=== PATIENT | female | born 1965 ===

== ENCOUNTER 2016-10-01 14:03 | Observation (INO) | payer BC ==
[2016-10-01 14:21] VITALS: BP 128/78; PULSE 65; RESP 16; TEMP 98.4; O2SAT 100
--- NOTE | 2016-10-01 15:29 | ED PDOC ---
Lower Extremity Pain/Injury Time Seen by Provider: 10/01/16 14:57 Chief Complaint (Nursing): Abdominal Pain Chief Complaint (Provider): Right Groin Pain History Per: Patient History/Exam Limitations: no limitations Onset/Duration Of Symptoms: Days (x1 month), Intermittent Episodes Current Symptoms Are (Timing): Still Present Severity: Moderate Additional Complaint(s): Vanessa Monte is a 51 year old female, with a past medical history inclusive of varicose veins, who presents to the ED on 10/01/16 for the evaluation of moderate, intermittent right groin pain that she has experienced x1 month. Pain , further described as radiating down into her left ankle, is reportedly worse both with movement and with prolonged standing. Some associated right calf pain also reported as well as a sensation of "heaviness" within the affected leg. Denies chest pain, shortness of breath, back pain, abdominal discomfort, skin discoloration or extremity swelling. Further denies prior history of DVT/ pulmonary embolism, recent surgery, recent travel or use or hormone therapies. PERC (-). PMD: Nathan Ordaz Past Medical History Reviewed: Historical Data, Nursing Documentation, Vital Signs Vital Signs: Last Vital Signs Temp 98.4 F 10/01/16 14:18 Pulse 65 10/01/16 14:18 Resp 16 10/01/16 14:18 BP 128/78 10/01/16 14:18 Pulse Ox 100 10/01/16 14:18 - Medical History PMH: No Chronic Diseases Denies: Deep Vein Thrombosis, Pulmonary Embolism Other PMH: varicose veins - Surgical History Surgical History: Hernia Repair Other surgeries: hysterectomy, varicose vein surgery - Family History Family History: States: Unknown Family Hx - Social History Current smoker - smoking cessation education provided: No Alcohol: None Drugs: Denies - Allergies Allergies/Adverse Reactions: Allergies Allergy/AdvReac Type Severity Reaction Status Date / Time No Known Allergies Allergy Verified 10/01/16 14:18 Review of Systems Cardiovascular: Negative for: Chest Pain, Edema Respiratory: Negative for: Shortness of Breath, SOB with Exertion Gastrointestinal: Negative for: Abdominal Pain Musculoskeletal: Positive for: Leg Pain (right calf pain w/sensation of "heaviness" within affected leg; no skin discoloration), Other (right groin pain w/radiation down towards ankle). Negative for: Back Pain Physical Exam - Reviewed Nursing Documentation Reviewed: Yes Vital Signs Reviewed: Yes - Physical Exam Appears: Positive for: Non-toxic, No Acute Distress Head Exam: Positive for: ATRAUMATIC, NORMOCEPHALIC Skin: Positive for: Normal Color, Warm, Dry Neck: Positive for: Normal, Painless ROM, Supple Cardiovascular/Chest: Positive for: Regular Rate, Rhythm. Negative for: Murmur Respiratory: Positive for: Normal Breath Sounds. Negative for: Respiratory Distress Pulses-Dorsalis Pedis (R): 2+ Gastrointestinal/Abdominal: Positive for: Normal Exam, Soft. Negative for: Tenderness Back: Positive for: Normal Inspection Extremity: Positive for: Normal ROM, Calf Tenderness (right), Capillary Refill ( <2 seconds), Other (right groin tenderness w/faint right femoral pulse). Negative for: Deformity, Swelling Neurologic/Psych: Positive for: Alert, Oriented - Laboratory Results Result Diagrams: 10/01/16 15:20 10/01/16 15:20 Interpretation Of Abn Labs: K+ low-given K-dur - ECG O2 Sat by Pulse Oximetry: 100 (RA) Pulse Ox Interpretation: Normal Medical Decision Making Medical Decision Makin:57 Initial Impression: right groin/calf pain; will r/o DVT Initial Plan: * Duplex LE Vein, Right * Labs * PTT * PT * Reevaluation 17:04. Pt with prolonged ED wait-due to signidicant wait in [place]. 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 pt with negative DVT pt most liekly with GAUTAM flores advised to f.u with pmd for PTx if needed and motrin Scribe Attestation: Documented by Lupe Cherry, acting as a scribe for Heather Walker PA-C. Provider Scribe Attestation: All medical record entries made by the Scribe were at my direction and personally dictated by me. I have reviewed the chart and agree that the record accurately reflects my personal performance of the history, physical exam, medical decision making, and the department course for this patient. I have also personally directed, reviewed, and agree with the discharge instructions and disposition. ED OBSERVATION Discharge: Yes Date of observation admission: 10/01/16 Time of observation admission: 17:08 - Observation admission statement Patient is being placed in observation because:: results of exam - Goals of Observation Goals of observation are:: results of US Disposition - Clinical Impression Clinical Impression: Cramps of lower extremity - Patient ED Disposition Is Patient to be Admitted: No Counseled Patient/Family Regarding: Studies Performed, Diagnosis, Need For Followup, Rx Given - Disposition Disposition: Routine/Home Disposition Time: 19:07 Condition: GOOD
[2016-10-01 15:39] LABS: BASO # 0.1 K/uL (0.0-0.2); BASO % 0.9 % (0.0-2.0); EOS # 0.1 K/uL (0.0-0.7); EOS % 1.5 % (0.0-4.0); HEMATOCRIT 37.6 % (34.0-47.0); LYMPH # 1.8 K/uL (1.0-4.3); MEAN CELL VOLUME 94.3 fl (81.0-99.0); MEAN CORPUSCULAR HEMOGLOBIN 31.1 pg (27.0-31.0); MEAN PLATELET VOLUME 9.3 fl (7.2-11.7); MONO # 0.6 K/uL (0.0-0.8); MONO % 8.8 % (0.0-10.0); NEUT # 4.6 K/uL (1.8-7.0); NEUT % 63.8 % (50.0-75.0); RED CELL DISTRIBUTION WIDTH 14.2 % (11.5-14.5); WHITE BLOOD COUNT 7.3 K/uL (4.8-10.8)
[2016-10-01 15:49] LABS: ALB/GLOB RATIO 1.2 (1.0-2.1); ALKALINE PHOSPHATASE 82 U/L (38-126); ALT/SGPT 71 U/L (9-52); AST/SGOT 57 U/L (14-36); BILIRUBIN,TOTAL 0.3 mg/dl (0.2-1.3); BLOOD UREA NITROGEN 14 mg/dl (7-17); CALCIUM 9.5 mg/dL (8.4-10.2); CARBON DIOXIDE 29 mmol/L (22-30); CHLORIDE 105 mmol/L (98-107); GFR AFRICAN-AMERICAN > 60; GLUCOSE,RANDOM 100 mg/dL (65-105); POTASSIUM 3.4 MMOL/L (3.6-5.0); SODIUM 146 mmol/l (132-148); TOTAL PROTEIN 7.4 G/DL (6.3-8.2)
[2016-10-01 15:55] LABS: PARTIAL THROMBOPLASTIN TIME 23.4 SECONDS (23.3-32.5)
[2016-10-01] MEDS ORDERED: Potassium Chloride 10 mEq ER Tab PO STA (16:06)
--- NOTE | 2016-10-01 19:18 | US ---
EXAM: US Duplex Right Lower Extremity Veins CLINICAL HISTORY: 51 years old, female; Pain; Leg, lower; Right; Additional info: Groin pain with calf pain TECHNIQUE: Real-time ultrasound scan of the veins of the right lower extremity with color Doppler flow, spectral waveform analysis and compression. EXAM DATE/TIME: 10/01/2016 3:08 PM COMPARISON: No relevant prior studies available. FINDINGS: Normal-appearing compressibility and flow are seen in the right common femoral, femoral and popliteal veins. There is also normal augmentation response in the right common femoral, femoral and popliteal veins. IMPRESSION: No evidence of deep venous thrombosis in the right leg.
== END 2016-10-01 19:07 | disposition home or self-care (01) ==
LOC: H.ER 14:03 → H.EROBSV 17:08
PROVIDERS: ADMIT Emergency Medicine; ATTEND Emergency Medicine
DX: R10.31 Right lower quadrant pain (principal); M79.606 Pain in leg, unspecified
CPT/HCPCS: 80053; 85025; 85610; 85730; 93971; 99282; G0378